=== PATIENT | female | born 1955 | race Caucasian/White ===

== ENCOUNTER 2019-12-10 11:08 | Outpatient (CLI) | payer MEDICARE, MEDICAID, SELFPAY ==
--- NOTE | 2019-12-09 | XR_ITS ---
WS: [id number] CHEST, 1 view. HISTORY: COPD COMPARISON: 10/25/2019 Hyperinflated lungs with emphysema. Slight blunting of the RIGHT costophrenic angle. No pleural effus ion or pneumothorax. Cardiac size: Normal. Mediastinum/Aorta: No mediastinal widening. Small hiatal hernia. No osseous abnormality seen. XR/XR chest 1V [id number] IMPRESSION: 1. Emphysema with no pneumonia. 2. Stable pleural thickening at the RIGHT costophrenic angle.
== END 2019-12-10 11:09 | disposition home or self-care (01) ==
PROVIDERS: PCP Physician Assistant; Visit Provider Physician Assistant
DX: Z76.89 Persons encountering health services in other specified circumstances (principal)

== ENCOUNTER 2019-12-19 06:00 | Outpatient (RCR) | payer MEDICARE, SELFPAY | END 2020-01-04 23:59 | disposition home or self-care (01) | LOC: SPT 06:00 | PROVIDERS: PCP Physician Assistant; Referring Provider Physician Assistant; Visit Provider Physician Assistant | DX: M06.9 Rheumatoid arthritis, unspecified (principal) | CPT/HCPCS: 97110; 97112; 97116; 97161 ==

== ENCOUNTER 2020-01-05 06:00 | Outpatient (RCR) | payer MEDICARE, MEDICAID, SELFPAY | END 2020-02-04 23:59 | disposition home or self-care (01) | LOC: SPT 06:00 | PROVIDERS: PCP Physician Assistant; Referring Provider Physician Assistant; Visit Provider Physician Assistant | DX: M06.9 Rheumatoid arthritis, unspecified (principal) | CPT/HCPCS: 97110; 97530 ==